=== PATIENT | male | born 2000 | race African-American/Black ===

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

== ENCOUNTER 2019-08-31 10:43 | Emergency (ER) | payer BC, OTHER ==
--- NOTE | 2019-08-31 11:19 | RAD ---
XR Ankle Rt 3 View STANDARD History: Trauma. Pain. Comparison: None. Findings: No acute fracture or malalignment. The soft tissues are unremarkable. Small moderate joint effusion. No talar dome osteochondral defect. Impression: No acute osseous abnormality. Moderate joint effusion.
== END 2019-08-31 11:37 | disposition home or self-care (01) ==
LOC: NAV ERS 10:43
DX: S93.401A Sprain of unspecified ligament of right ankle, initial encounter (principal); J45.909 Unspecified asthma, uncomplicated; X50.9XXA Other and unspecified overexertion or strenuous movements or postures, initial encounter

== ENCOUNTER 2019-11-10 19:48 | Emergency (ER) | payer OTHER | END 2019-11-10 20:45 | disposition home or self-care (01) | LOC: NAV ERS 19:48 | DX: L02.214 Cutaneous abscess of groin (principal); J45.909 Unspecified asthma, uncomplicated; F17.200 Nicotine dependence, unspecified, uncomplicated | CPT/HCPCS: 99283 ==

== ENCOUNTER 2022-04-17 17:39 | Emergency (ER) | payer OTHER, SELFPAY ==
[2022-04-17] MEDS ORDERED: Acetaminophen 500 MG TAB ONE (18:00)
== END 2022-04-17 19:06 | disposition home or self-care (01) ==
LOC: NAV ERS 17:39
DX: S39.012A Strain of muscle, fascia and tendon of lower back, initial encounter (principal); U07.1 COVID-19; X58.XXXA Exposure to other specified factors, initial encounter
CPT/HCPCS: 87081; 87430; 87804; 99283; U0003; U0005

== ENCOUNTER 2022-10-11 19:20 | Emergency (ER) | payer OTHER ==
[2022-10-11] MEDS ORDERED: Lidocaine 1% (PF) 30 ML VIAL ONE (19:34)
[2022-10-11] MEDS ORDERED: Ketorolac Tromethamine 30 MG/ML VIAL ONE (19:45)
== END 2022-10-11 20:43 | disposition home or self-care (01) ==
LOC: NAV ERS 19:20
DX: N49.2 Inflammatory disorders of scrotum (principal)
CPT/HCPCS: 55100; 87070; 87205; 90471; 96372; J1885; J2001

== ENCOUNTER 2024-04-19 09:20 | Emergency (ER) | payer SELFPAY ==
[2024-04-19] MEDS ORDERED: methylPREDNISolone Sod Succ/PF 125 MG/2 ML VIAL ONE (09:32)
== END 2024-04-19 09:54 | disposition home or self-care (01) ==
LOC: NAV ERS 09:20
DX: R21 Rash and other nonspecific skin eruption (principal)
CPT/HCPCS: 96372; 99282; J2930

== ENCOUNTER 2024-09-01 00:24 | Emergency (ER) | payer SELFPAY ==
[2024-09-01] MEDS ORDERED: Ondansetron ODT 4 MG TAB ONE (00:33)
== END 2024-09-01 00:55 | disposition home or self-care (01) ==
LOC: NAV ERS 00:24
DX: R11.2 Nausea with vomiting, unspecified (principal)
CPT/HCPCS: 99283; Q0162

== ENCOUNTER 2025-06-24 17:52 | Emergency (ER) | payer SELFPAY ==
[2025-06-24] MEDS ORDERED: Acetaminophen 325 MG TAB ONE (18:34)
== END 2025-06-24 19:30 | disposition home or self-care (01) ==
LOC: NAV ERS 17:52
DX: J02.9 Acute pharyngitis, unspecified (principal); B97.89 Other viral agents as the cause of diseases classified elsewhere
CPT/HCPCS: 87426; 99283

== ENCOUNTER 2025-06-26 10:17 | Emergency (ER) | payer SELFPAY ==
[2025-06-26] MEDS ORDERED: Dexamethasone 10 MG/ML VIAL ONE (10:58)
== END 2025-06-26 11:11 | disposition home or self-care (01) ==
LOC: NAV ERS 10:17
DX: J02.9 Acute pharyngitis, unspecified (principal)
CPT/HCPCS: 99282; J1100